=== PATIENT | male | born 2000 | race Caucasian/White ===

== ENCOUNTER 2021-04-08 15:38 | Emergency (ER) | payer OTHER, SELFPAY ==
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
--- NOTE | ~2021-04-08 | XR_ITS ---
XR thoracic spine 3V DATE: 04/08/2021 17:51 INDICATION: Mid thoracic spine pain, pain under left shoulder blade TECHNIQUE: AP, lateral, swimmer views COMPARISON: None FINDINGS: There is mild dextroscoliosis of the upper thoracic spine and minimal levoscoliosis of the lower thoracic spine. No fracture or dislocation or bone destruction or paraspinal soft tissue thickening is detected. The thoracic pedicles are intact. IMPRESSION: Scoliosis Reviewed, dictated and finalized at location A. IMPRESSION: Scoliosis
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
[2021-04-08 15:41] VITALS: PULSE 98; RESP 16; TEMP 37; O2SAT 100
[2021-04-08] MEDS: IBUPROFEN 400 MG TABLET 800 MG PO (16:20)
[2021-04-08] MEDS: TETANUS,DIPHTHERIA,AC PERTUSSIS ADULT (0.5 ML) BOOSTRIX IM (16:20)
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
--- NOTE | 2021-04-08 17:23 | ECG_ITS ---
Measurements Intervals Nash Rate: 66 P: 2 MD: 144 QRS: 71 QRSD: 96 T: 47 QT: 357 QTc: 375 Interpretive Statements SINUS RHYTHM NORMAL ECG Electronically Signed On 04-08-2021 20:23:34 CDT by Americo Esparza D.O.
[2021-04-08] MEDS: CYCLOBENZAPRINE HCL 10 MG TABLET PO (17:28)
[2021-04-08 17:52] VITALS: BP 103/60; PULSE 81; RESP 18; O2SAT 98
== END 2021-04-08 18:39 | disposition home or self-care (01) ==
PROVIDERS: Emergency Provider General Practice
DX: R07.89 Other chest pain (principal); S39.012A Strain of muscle, fascia and tendon of lower back, initial encounter; S29.012A Strain of muscle and tendon of back wall of thorax, initial encounter; S60.512A Abrasion of left hand, initial encounter; S61.442A Puncture wound with foreign body of left hand, initial encounter; Z23 Encounter for immunization; V43.52XA Car driver injured in collision with other type car in traffic accident, initial encounter
CPT/HCPCS: 71046; 72072; 72100; 73130; 90471; 90715; 93005; 99284; A9270